=== PATIENT | female | born 1990 | race Caucasian/White ===

== ENCOUNTER 2016-08-16 11:21 | Emergency (ER) | payer OTHER ==
[~2016-08-16] VITALS: Ht 157.5 cm; Wt 78.5 kg
[~2016-08-16 11:21] MED LIST: ACETAMINOPHEN-1 EAC1 PO; ACYCLOVIR 200200 MG PO; ACYCLOVIR 400400 MG PO; ADDERALL 10 MG10 MG; ALBENZA200 MG PO; AMBIEN 5 MG TABL5 M1 PO; ATIVAN0.5 MG PO; AUGMENTIN 875875 MG PO; BENTYL 20 MG TA20 M1 PO; BUSPAR30 MG; CLEOCIN HCL300 MG PO; CLONAZEPAM 1 MG1 M1; CLONAZEPAM 1 MG1 M1 PO; CLONIDINE0.1 PO; COLACE100 MG PO; DEPAKOTE ER500 MG PO; DESYREL50 MG; DOXYCYCLINE 10100 MG PO; EFFEXOR XR37.5 MG PO; EFFEXOR XR75 MG PO; ESKALITH300 MG PO; FLEXERIL PO; HALDOL 0.5 MG0.5 MG PO; HYDROCODON-ACE1 EAC7 PO; HYDROCODONE-AP1 EAC6 PO; IBUPROFEN 600600 M1 PO; IBUPROFEN 800800 MG PO; INDERAL40 MG; KEFLEX500 M1 PO; KEFLEX500 MG PO; LATUDA60 MG PO; LIDODERM 5%1 PATC1 TRANSDERM; LITHATE5 MG; LOPERAMIDE 2 MG2 M1 PO; MACROBID 100 M100 M1 PO; METHYLPHENIDATE20 M4 PO; MINIPRESS1 MG PO; MOBIC15 MG PO; NAPROSYN500 MG PO; NITROFURANTOIN100 MG PO; NORCO 5-325 TA1 EACH PO; NORFLEX100 MG PO; ONDANSETRON HCL4 M2 PO; OXYBUTYNIN 5 MG5 M1 PO; OXYBUTYNIN 5 MG5 M2; PERCOCET 5-3251 EACH PO; PHENERGAN 25 MG25 M1 PO; PRAZOSIN 1 MG CA1 M1; PROCTOCREAM-HC30 G1 RC; PROZAC 20 MG20 MG; PYRIDIUM200 MG PO; SEROQUEL 100 M100 M1; SEROQUEL200 MG; SUPRAX400 M1 PO; SUPRAX400 MG PO; TENEX1 MG PO; TOPAMAX25 M1; TRAZODONE 150150 M1 PO; TYLENOL WITH CO1 TA1 PO; ULTRAM 50MG TAB50 MG PO; VISTARIL 25 MG25 M1; ZOLOFT25 MG; ZPAK PO; ZYPREXA 10 MG T10 M1 PO
[2016-08-16 11:41] VITALS: BP 109/75
[2016-08-16] MEDS ORDERED: IBUPROFEN 800800 MG PO (11:46)
[2016-08-16] MEDS ORDERED: AMOXICILLIN875 MG PO (11:46)
== END 2016-08-16 12:14 | disposition home or self-care (01) ==
LOC: ER 11:21
DX: K02.9 Dental caries, unspecified (principal); F31.9 Bipolar disorder, unspecified; F41.9 Anxiety disorder, unspecified; F17.210 Nicotine dependence, cigarettes, uncomplicated; F84.5 Asperger's syndrome; Z87.440 Personal history of urinary (tract) infections; Z88.1 Allergy status to other antibiotic agents; Z88.2 Allergy status to sulfonamides

== ENCOUNTER 2016-08-25 11:56 | Emergency (ER) | payer OTHER ==
[~2016-08-25] VITALS: Ht 157.5 cm; Wt 78.5 kg
[~2016-08-25 11:56] MED LIST changes: +AMOXICILLIN875 MG PO
[2016-08-25 12:14] VITALS: BP 114/72
[2016-08-25] MEDS ORDERED: ACETAMINOPHEN-1 EAC1 PO (12:23)
[2016-08-25] MEDS ORDERED: IBUPROFEN 600600 M1 PO (13:07)
[2016-08-25] MEDS ORDERED: ULTRAM 50MG TAB50 MG PO (13:07)
== END 2016-08-25 13:22 | disposition home or self-care (01) ==
LOC: ER 11:56
DX: M25.551 Pain in right hip (principal); F41.9 Anxiety disorder, unspecified; F31.9 Bipolar disorder, unspecified; F84.5 Asperger's syndrome; F17.210 Nicotine dependence, cigarettes, uncomplicated; Z88.1 Allergy status to other antibiotic agents; Z87.440 Personal history of urinary (tract) infections; Z88.2 Allergy status to sulfonamides

== ENCOUNTER 2017-03-08 16:14 | Emergency (ER) | payer OTHER ==
[~2017-03-08] VITALS: Ht 154.9 cm; Wt 77.6 kg
[2017-03-08] MEDS ORDERED: METHYLPHENIDATE10 M5 PO (16:33)
[2017-03-08] MEDS ORDERED: MOBIC7.5 MG PO (16:56)
[2017-03-08] MEDS ORDERED: ULTRAM 50MG TAB50 MG PO (16:56)
[2017-10-22] MEDS ORDERED: PRENATAL PO (20:06)
[2017-10-22] MEDS ORDERED: IRON325 PO (20:06)
[2017-10-22] MEDS ORDERED: TYLENOL EXTRA500 MG PO (20:50)
== END 2017-03-08 17:11 | disposition home or self-care (01) ==
LOC: ER 16:14
DX: K05.10 Chronic gingivitis, plaque induced (principal); K08.89 Other specified disorders of teeth and supporting structures; F31.9 Bipolar disorder, unspecified; F41.9 Anxiety disorder, unspecified; F32.9 Major depressive disorder, single episode, unspecified; F17.210 Nicotine dependence, cigarettes, uncomplicated; Z88.1 Allergy status to other antibiotic agents; Z88.2 Allergy status to sulfonamides

== ENCOUNTER 2017-12-20 11:39 | Emergency (ER) | payer OTHER ==
[~2017-12-20] VITALS: Ht 157.5 cm; Wt 85.3 kg
[~2017-12-20 11:39] MED LIST changes: +IRON325 PO; +METHYLPHENIDATE10 M5 PO; +MOBIC7.5 MG PO; +PRENATAL PO; +TYLENOL EXTRA500 MG PO
[2017-12-20 12:21] LABS: URINE BILIRUBIN NEGATIVE (Negative); URINE BLOOD NEGATIVE (Negative); URINE CLARITY CLOUDY; URINE COLOR YELLOW; URINE GLUCOSE-RANDOM* NEGATIVE (Negative); URINE KETONES 2+ (Negative); URINE LEUKOCYTES-REFLEX NEGATIVE (Negative); URINE NITRITE-REFLEX NEGATIVE (Negative); URINE PROTEIN (DIPSTICK) NEGATIVE (Negative); URINE SPECIFIC GRAVITY 1.015 (1.005-1.035)
[2017-12-20 12:26] LABS: SSA (PROTEIN CONFIRMATORY) NEGATIVE (Negative)
[2017-12-20 12:42] VITALS: BP 105/54
== END 2017-12-20 12:42 ==
LOC: ER 11:39
PROVIDERS: Student in an Organized Health Care Education/Training Program
DX: O99.353 Diseases of the nervous system complicating pregnancy, third trimester (principal); G56.03 Carpal tunnel syndrome, bilateral upper limbs; O99.333 Smoking (tobacco) complicating pregnancy, third trimester; F17.210 Nicotine dependence, cigarettes, uncomplicated; Z3A.30 30 weeks gestation of pregnancy; Z88.1 Allergy status to other antibiotic agents; Z88.2 Allergy status to sulfonamides; Z87.440 Personal history of urinary (tract) infections

== ENCOUNTER 2019-07-29 16:16 | Emergency (ER) | payer OTHER ==
[~2019-07-29] VITALS: Ht 157.5 cm; Wt 99.8 kg
[2019-07-29 16:35] LABS: URINE BILIRUBIN NEGATIVE (Negative); URINE BLOOD TRACE (Negative); URINE CLARITY CLEAR; URINE COLOR YELLOW; URINE GLUCOSE-RANDOM* NEGATIVE (Negative); URINE KETONES NEGATIVE (Negative); URINE NITRITE-REFLEX NEGATIVE (Negative); URINE PROTEIN (DIPSTICK) TRACE (Negative); URINE SPECIFIC GRAVITY >= 1.030 (1.005-1.035); URINE UROBILINOGEN 0.2 E.U./dl (0.2-1.0)
[2019-07-29 16:37] LABS: URINE LEUKOCYTES-REFLEX 2+ (Negative)
[2019-07-29 16:47] LABS: CASTS None Seen /LPF (None Seen); CRYSTALS None Seen /LPF (None Seen); MUCUS 0-3 Light strn/LPF (None Seen); SQUAMOUS 0-3 Few /LPF (0-3); URINE WBC-REFLEX >25 Many /HPF (0-5)
[2019-07-29 16:48] LABS: URINE RBC 0-2 Rare /HPF (0-2)
[2019-07-29] MEDS ORDERED: KEFLEX500 M1 PO (17:56)
[2019-07-29 18:06] VITALS: BP 127/91
== END 2019-07-29 18:07 | disposition home or self-care (01) ==
LOC: ER 16:16
PROVIDERS: Nurse Practitioner Family
DX: N39.0 Urinary tract infection, site not specified (principal); F17.210 Nicotine dependence, cigarettes, uncomplicated; Z88.1 Allergy status to other antibiotic agents; Z88.2 Allergy status to sulfonamides; Z79.899 Other long term (current) drug therapy

== ENCOUNTER 2019-10-09 20:28 | Emergency (ER) | payer OTHER ==
[~2019-10-09] VITALS: Ht 162.6 cm; Wt 83.9 kg
[2019-10-09] MEDS ORDERED: EMVERM100 MG PO (21:30)
[2019-10-09 22:00] VITALS: BP 141/81
== END 2019-10-09 22:00 | disposition home or self-care (01) ==
LOC: ER 20:28
DX: B79 Trichuriasis (principal); R53.1 Weakness; F90.9 Attention-deficit hyperactivity disorder, unspecified type; F32.9 Major depressive disorder, single episode, unspecified; F41.9 Anxiety disorder, unspecified; F17.210 Nicotine dependence, cigarettes, uncomplicated; Z79.899 Other long term (current) drug therapy; Z88.1 Allergy status to other antibiotic agents; Z88.2 Allergy status to sulfonamides

== ENCOUNTER 2019-11-06 22:05 | Emergency (ER) | payer OTHER ==
[~2019-11-06] VITALS: Ht 157.5 cm; Wt 68.0 kg
[~2019-11-06 22:05] MED LIST changes: +EMVERM100 MG PO
[2019-11-06] MEDS ORDERED: PERCOCET 5-3251 EACH PO (22:36)
== END 2019-11-06 22:47 | disposition home or self-care (01) ==
LOC: ER 22:05
DX: T23.221A Burn of second degree of single right finger (nail) except thumb, initial encounter (principal); T31.0 Burns involving less than 10% of body surface; F32.9 Major depressive disorder, single episode, unspecified; F41.9 Anxiety disorder, unspecified; F90.9 Attention-deficit hyperactivity disorder, unspecified type; F17.210 Nicotine dependence, cigarettes, uncomplicated; Z79.899 Other long term (current) drug therapy; Z88.1 Allergy status to other antibiotic agents; Z88.2 Allergy status to sulfonamides; X12.XXXA Contact with other hot fluids, initial encounter; Y93.G3 Activity, cooking and baking; Y92.098 Other place in other non-institutional residence as the place of occurrence of the external cause; Y99.8 Other external cause status